=== PATIENT | male | born 1970 | race Two or more races ===

== ENCOUNTER 2017-05-29 23:37 | Emergency (ER) | payer MEDICARE ==
--- NOTE | ~2017-05-29 | CR72 ---
[facility] A Service of [facility] & [facility] RADIOLOGY TEXT RESULTS PATIENT: MARLEY LEE LOCATION: [facility] : 72 UNIT #: [id number] AGE: [address]: Marcus Arechiga MD SEX: M ORDER DR: [id number] [facility] [address] [place], [place] [address] [id number] E MR#: [id number] Acc #: [id number] NAME: MARLEY LEE. : 1970 SEX: M STUDY DATE/TIME: 05/29/2017 23:51 UNIT: [facility] ROOM: STUDY DESCRIPTION: CR Chest Single View Portable Attending Physician: Marcus Arechiga M.D. Ordering Physician: Marcus Arechiga M.D. Primary Care Physician: Mayank Tejada M.D. MEDICAL IMAGING REPORT This report is preliminary unless electronic signature is present EXAM Single view chest. INDICATIONS Chest pain. Tachycardia and dizziness for 1 day. FINDINGS Single portable AP of the chest compared to 01/09/2015. The heart and mediastinal contours are unchanged. There is some linear atelectasis or scarring in the left lung base. This is unchanged. No new pulmonary opacities. No pleural effusion. IMPRESSION 1. No acute findings or significant interval change. 2. Linear scarring or atelectasis in the left lower lobe is unchanged from the prior study. Dictated by... Berny Bang M.D. THIS IS AN ELECTRONICALLY VERIFIED REPORT Berny Bang M.D. at 05/30/2017 10:46 PM KEVIN/chase TD: 05/30/2017 17:22 JOB #: [id number] MEDICAL IMAGING REPORT Page 1 of 1 COPY
--- NOTE | ~2017-05-29 | CT16 ---
[facility]. [facility] A Service of [facility] RADIOLOGY TEXT RESULTS PATIENT: MARLEY LEE LOCATION: [facility] : 72 UNIT #: [id number] AGE: [address]: Marcus Arechiga MD SEX: M ORDER DR: [id number] [facility] [address] [place], [place] [address] [id number] E MR#: [id number] #: [id number] NAME: MARLEY LEE. : 1970 SEX: M STUDY DATE/TIME: 05/30/2017 1:55 UNIT: [facility] ROOM: STUDY DESCRIPTION: CT Angio Chest for PE Attending Physician: Marcus Arechiga M.D. Ordering Physician: Marcus Arechiga M.D. Primary Care Physician: Mayank Tejada M.D. MEDICAL IMAGING REPORT This report is preliminary unless electronic signature is present EXAM CT chest. INDICATIONS Left-sided chest pain for [address] angiography of the chest utilizing 100 mL Isovue-370 IV contrast. Coronal, 3-D MIP reconstructions were obtained and standard sagittal reconstructions were performed. The exam was performed as a pulmonary embolus protocol CT. This CT exam was performed with one or more of the following radiation dose reduction techniques: automatic exposure control, adjustment of mA and/or kV according to patient size, and iterative reconstruction. COMPARISON Chest radiograph dated 05/29/2017. FINDINGS Unfortunately, respiratory motion precludes evaluation of the peripheral pulmonary arteries. No central pulmonary embolus. No thoracic aortic aneurysm or dissection. No pericardial or pleural effusion. There is some linear airspace opacities in both bases most consistent with atelectasis. There is some background steatosis. No acute osseous abnormalities. IMPRESSION 1. No central pulmonary embolus. Respiratory motion precludes evaluation of the peripheral pulmonary arteries. 2. Linear airspace opacities in both lung bases. This has appearance most typical for atelectasis, however, correlate for any evidence of STS. [facility] A Service of [facility] & [facility] RADIOLOGY TEXT RESULTS PATIENT: MARLEY LEE LOCATION: [facility] : 72 UNIT #: [id number] AGE: [address]: Mracus Arechiga MD SEX: M ORDER DR: a superimposed pneumonia. 3. Hepatic steatosis. Dictated by... Berny Bang M.D. THIS IS AN ELECTRONICALLY VERIFIED REPORT Breny Bang M.D. at 05/30/2017 10:46 PM KEVIN/chase TD: 05/30/2017 20:31 JOB #: [id number] MEDICAL IMAGING REPORT Page 1 of 1 COPY
--- NOTE | ~2017-05-29 | EKG ---
PATIENT: MARLEY LEE UNIT #: [id number] Ventricular Rate: 146 BPM Atrial Rate: 146 BPM P-R Interval: 138 ms QRS Duration: 90 ms Q-T Interval: 268 ms QTC Calculation(Bezet): 417 ms P [place]: 16 degrees Calculated R [place]: -25 degrees Calculated T [place]: 6 degrees Diagnosis Line: Sinus tachycardia Diagnosis Line: Cannot rule out Anterior infarct , age Diagnosis Line: undetermined Diagnosis Line: Abnormal ECG Diagnosis Line: When compared with ECG of 09-JAN-2015 18:55, Diagnosis Line: Vent. rate has increased BY 66 BPM Diagnosis Line: T wave inversion now evident in Inferior leads Diagnosis Line: Confirmed by CRISTIAN ADAME MD ([id number]) on Diagnosis Line: 05/31/2017 8:20:38 AM INTERPRETING MD: DEEP YUAN
--- NOTE | ~2017-05-29 | EKG ---
PATIENT: MARLEY LEE UNIT #: [id number] Ventricular Rate: 128 BPM Atrial Rate: 128 BPM P-R Interval: 158 ms QRS Duration: 90 ms Q-T Interval: 296 ms QTC Calculation(Bezet): 432 ms P [place]: 9 degrees Calculated R [place]: -20 degrees Calculated T [place]: 4 degrees Diagnosis Line: Sinus tachycardia Diagnosis Line: Cannot rule out Anterior infarct (cited on or Diagnosis Line: before 29-MAY-2017) Diagnosis Line: Abnormal ECG Diagnosis Line: When compared with ECG of 30-MAY-2017 00:04, Diagnosis Line: (unconfirmed) Diagnosis Line: No significant change was found Diagnosis Line: Confirmed by CRISTIAN ADAME MD ([id number]) on Diagnosis Line: 05/31/2017 8:20:54 AM INTERPRETING MD: DEEP YUAN
--- NOTE | ~2017-05-29 | EKG ---
PATIENT: MARLEY LEE UNIT #: [id number] Ventricular Rate: 128 BPM Atrial Rate: 128 BPM P-R Interval: 162 ms QRS Duration: 90 ms Q-T Interval: 296 ms QTC Calculation(Bezet): 432 ms P [place]: 8 degrees Calculated R [place]: -20 degrees Calculated T [place]: 6 degrees Diagnosis Line: Sinus tachycardia Diagnosis Line: Cannot rule out Anterior infarct (cited on or Diagnosis Line: before 29-MAY-2017) Diagnosis Line: Abnormal ECG Diagnosis Line: When compared with ECG of 29-MAY-2017 23:42, Diagnosis Line: (unconfirmed) Diagnosis Line: No significant change was found Diagnosis Line: Confirmed by CRISTIAN ADAME MD ([id number]) on Diagnosis Line: 05/31/2017 8:20:46 AM INTERPRETING MD: DEEP YUAN
[~2017-05-29 23:37] MED LIST: DILAUDID4 M1 PO; NAPROSYN500 MG PO; PHENERGAN PO; PRILOSEC20 M1 PO
[2017-05-30 00:11] LABS: POC - CKMB <1.0 ng/mL (0.0-7.9); POC - TROPONIN <0.05 ng/mL (<=0.05)
[2017-05-30] MEDS ORDERED: SONATA (00:31)
[2017-05-30] MEDS ORDERED: ZANAFLEX (00:31)
[2017-05-30] MEDS ORDERED: SEROQUEL XR300 MG PO (00:32)
[2017-05-30 01:21] LABS: BASOPHIL% 0.3 % (0-2.5); DIFF IND YES; EOSINOPHIL# 0.2 X10e3 (0-0.7); HEMATOCRIT 44.3 % (38.0-50.0); LYMPHOCYTE# 3.5 X10e3 (1.0-3.5); LYMPHOCYTE% 50.9 % (17.0-45.0); MEAN CELL VOLUME 73.7 FL (83-96); MEAN CORPUSCULAR HEMOGLOBIN 23.4 PG (28-34); MEAN CORPUSCULAR HGB CONC 31.7 g/dL (30-36); MONOCYTE# 0.5 X10e3 (0-1.0); MONOCYTE% 7.5 % (3.0-12.0); NEUTROPHIL# 2.6 X10e3 (1.5-7.1); NEUTROPHIL% 38.3 % (40-75); PLATELET COUNT 202 X10e3 (140-420); RED BLOOD COUNT 6.01 X10e (3.90-5.60); RED CELL DISTRIBUTION WIDTH 13.5 % (11.0-15.5); WHITE BLOOD COUNT 6.8 X10e3 (4.0-10.5)
[2017-05-30 01:29] LABS: BILIRUBIN, DIRECT 0.2 mg/dL (0.0-0.2); BILIRUBIN,TOTAL 1.2 mg/dL (0.2-2.0); CALCIUM SERUM 8.3 mg/dL (8.4-10.2); GLOM FILT RATE Estimated 89.9 mL/min (>60); MAGNESIUM 2.2 mg/dL (1.6-3.0); POTASSIUM 3.4 mmol/L (3.5-5.1); PROTEIN TOTAL SERUM 7.1 g/dL (6.0-8.3)
[2017-05-30 01:41] LABS: DIFFERENTIAL COMMENT FEW ATY.LYMPH; PLATELET ESTIMATE NORMAL (NORMAL)
[2017-05-30 01:42] LABS: ANISOCYTOSIS SL; MICROCYTOSIS MOD; OVALOCYTES PRESENT; TEAR DROP CELLS PRESENT
[2017-05-30 01:51] LABS: POC - CKMB <1.0 ng/mL (0.0-7.9); POC - TROPONIN <0.05 ng/mL (<=0.05)
[2017-05-30 04:17] LABS: POC - CKMB <1.0 ng/mL (0.0-7.9); POC - TROPONIN <0.05 ng/mL (<=0.05)
== END 2017-05-30 04:40 | disposition home or self-care (01) ==
LOC: CED 23:37
PROVIDERS: Emergency Medicine
DX: R07.9 Chest pain, unspecified (principal); R73.9 Hyperglycemia, unspecified; Z79.899 Other long term (current) drug therapy
CPT/HCPCS: 36415; 71010; 71275; 80048; 80076; 82553; 83735; 84443; 84484; 85025; 93005; 96361; 96374; 96375; 99285; J1170; Q9967